=== PATIENT | female | born 1940 | race Caucasian/White ===

== ENCOUNTER 2019-12-12 08:04 | Emergency (ER) | payer MEDICARE ==
[~2019-12-12] VITALS: Ht 154.9 cm; Wt 81.7 kg
[~2019-12-12 08:04] MED LIST: KEFLEX500 MG PO; PREDNISONE 10 M10 MG PO; TRIAMCINOLONE A80 G2 TOP
[2019-12-12] MEDS ORDERED: MULTIPLE VITAM1 EAC2 PO (08:17)
[2019-12-12] MEDS ORDERED: ACYCLOVIR 800800 MG PO (08:35)
[2019-12-12 08:38] VITALS: BP 178/108
== END 2019-12-12 08:39 | disposition home or self-care (01) ==
LOC: M.ERS 08:04
DX: B02.9 Zoster without complications (principal)